=== PATIENT | male | born 1945 | race Caucasian/White ===

== ENCOUNTER → 2025-03-16 10:38 | Outpatient (BNVA) | payer MEDICARE, SELFPAY | PROVIDERS: Visit Provider Nurse Practitioner Family | DX: M71.341 Other bursal cyst, right hand (principal); L82.1 Other seborrheic keratosis; D18.01 Hemangioma of skin and subcutaneous tissue; L81.4 Other melanin hyperpigmentation; L57.8 Other skin changes due to chronic exposure to nonionizing radiation; X32.XXXA Exposure to sunlight, initial encounter; L57.3 Poikiloderma of Civatte; Z12.83 Encounter for screening for malignant neoplasm of skin | CPT/HCPCS: 99203 ==